=== PATIENT | male | born 1940 | race Native Hawaiian/Other Pacific Islander ===

== ENCOUNTER 2017-10-30 14:25 | Outpatient (CLI) | payer OTHER ==
[2017-10-30 15:54] LABS: PLATELET COUNT 177 K/uL (142-355)
== END 2017-10-30 15:30 | disposition home or self-care (01) ==
LOC: LAB 14:25
PROVIDERS: Nurse Practitioner Family
DX: Z00.00 Encounter for general adult medical examination without abnormal findings (principal); Z79.899 Other long term (current) drug therapy; Z51.81 Encounter for therapeutic drug level monitoring; I10 Essential (primary) hypertension; E11.9 Type 2 diabetes mellitus without complications; R21 Rash and other nonspecific skin eruption
CPT/HCPCS: 80053; 80061; 83036; 84436; 84443; 84550; 85027; 85651

== ENCOUNTER 2017-11-22 12:21 | Emergency (ER) | payer OTHER ==
[~2017-11-22] VITALS: Ht 188 cm; Wt 99.8 kg
== END 2017-11-22 12:54 ==
LOC: ED 12:21
DX: I10 Essential (primary) hypertension (principal)

== ENCOUNTER → 2018-07-05 21:56 | Outpatient (CLI) | payer OTHER | END | disposition home or self-care (01) | LOC: AMB 21:56 | DX: R55 Syncope and collapse (principal); I10 Essential (primary) hypertension; E11.9 Type 2 diabetes mellitus without complications ==

== ENCOUNTER 2022-05-03 08:09 | Outpatient (CLI) | payer OTHER | END 2022-05-03 19:10 | disposition home or self-care (01) | LOC: US 08:09 | PROVIDERS: ATTEND Specialist | DX: R80.8 Other proteinuria (principal) ==